=== PATIENT | male | born 1965 | race Caucasian/White ===

== ENCOUNTER 2020-07-21 18:19 | Emergency (ER) | payer SELFPAY ==
[~2020-07-21] VITALS: Ht 160 cm; Wt 63.5 kg
[2020-07-21 18:26] VITALS: BP 147/91
--- NOTE | 2020-07-21 18:45 | NUR ---
PT ASSESSMENT COMPLETED BY GERARDO, NO NURSING INTERVENTIONS NEEDED AT THIS TIME.
[2020-07-21 18:51] VITALS: BP 147/91
--- NOTE | 2020-07-21 18:51 | NUR ---
PATIENT BIB [facility] POLICE DEPT. PATIENT EXAMINED BY DR. LE. PATIENT MEDICALLY CLEARED AND RELEASED IN CUSTODY IN STABLE CONDITION. ORIGINAL PRE-BOOK FORM GIVEN TO OFFICER Bharathi ANDRADE #[id number].
== END 2020-07-21 18:51 ==
LOC: MED 18:19
DX: R07.89 Other chest pain (principal); Z02.89 Encounter for other administrative examinations; V89.2XXA Person injured in unspecified motor-vehicle accident, traffic, initial encounter; Y93.89 Activity, other specified; Y92.89 Other specified places as the place of occurrence of the external cause; Y99.8 Other external cause status
CPT/HCPCS: 99283